=== PATIENT | male | born 1960 | race Caucasian/White ===

== ENCOUNTER 2016-11-17 16:09 | Observation (INO) | payer SELFPAY ==
[~2016-11-17] VITALS: Ht 162.6 cm; Wt 65.0 kg
[2016-11-17 16:50] LABS: HEMATOCRIT 45.4 % (39.2-51.8); HEMOGLOBIN 15.5 g/dL (13.7-18.0); WHITE BLOOD COUNT 6.6 x10^3/uL (3.4-10)
[2016-11-17 17:00] LABS: BLOOD UREA NITROGEN 15 mg/dL (7-18)
[2016-11-17 17:03] LABS: ASPARTATE AMINO TRANSFERASE 58 U/L (15-37)
[2016-11-17 17:09] LABS: ACETAMINOPHEN < 2 mcg/mL (10-30)
[2016-11-17] MEDS ORDERED: DOCUSATE 100 MG CAPSULE PO PRN (22:00)
[2016-11-17] MEDS ORDERED: ONDANSETRON ODT 4 MG PO PRN (22:00)
[2016-11-17] MEDS ORDERED: POLYETHYLENE GLYCOL 17 GM PACKET PO PRN (22:00)
[2016-11-17] MEDS ORDERED: BISACODYL 10 MG SUPP PR PRN (22:00)
[2016-11-17 22:09] LABS: DAU SCREEN DISCLAIMER
[2016-11-18 06:31] LABS: BLOOD UREA NITROGEN 15 mg/dL (7-18)
[2016-11-18 06:34] LABS: ASPARTATE AMINO TRANSFERASE 60 U/L (15-37)
[2016-11-18 07:45] VITALS: BP 129/80
[2016-11-18] MEDS: SERTRALINE 50MG TABLET PO SCH (08:43)
[2016-11-18] MEDS: ENOXAPARIN 40 MG/0.4 ML SQ SCH (08:45)
[2016-11-18] MEDS: NICOTINE 14MG/24 HR PATCH.TD24 TD SCH (08:45)
[2016-11-18 19:47] VITALS: BP 189/101
[2016-11-18 20:21] VITALS: BP 156/97
[2016-11-18] MEDS: TRAZODONE 100MG TABLET PO SCH (21:03)
[2016-11-19 05:08] LABS: BLOOD UREA NITROGEN 13 mg/dL (7-18)
[2016-11-19 05:11] LABS: ASPARTATE AMINO TRANSFERASE 65 U/L (15-37)
[2016-11-19 07:17] VITALS: BP 135/90
[2016-11-19] MEDS: NICOTINE 14MG/24 HR PATCH.TD24 TD SCH (08:43)
[2016-11-19] MEDS: SERTRALINE 50MG TABLET PO SCH (08:43)
[2016-11-19] MEDS: ENOXAPARIN 40 MG/0.4 ML SQ SCH (08:44)
[2016-11-19 19:53] VITALS: BP 155/89
[2016-11-19] MEDS: TRAZODONE 100MG TABLET PO SCH (20:56)
[2016-11-19 20:59] VITALS: BP 159/90
[2016-11-19 22:04] VITALS: BP 158/83
[2016-11-20 07:45] VITALS: BP 147/92
[2016-11-20] MEDS: ENOXAPARIN 40 MG/0.4 ML SQ SCH (08:04)
[2016-11-20] MEDS: SERTRALINE 50MG TABLET PO SCH (08:05)
[2016-11-20] MEDS: NICOTINE 14MG/24 HR PATCH.TD24 TD SCH (08:06)
[2016-11-20] MEDS ORDERED: TRAZ100T15 PO (10:06)
[2016-11-20] MEDS ORDERED: SERT50TA PO (10:06)
== END 2016-11-20 10:43 | disposition home or self-care (01) ==
LOC: ED 18:16 → EDIP 20:10 → INTOOBSV 20:10 → 3E 22:54
PROVIDERS: ADMIT Internal Medicine; ATTEND Internal Medicine
DX: R45.851 Suicidal ideations (principal); F32.9 Major depressive disorder, single episode, unspecified; B19.20 Unspecified viral hepatitis C without hepatic coma; R94.5 Abnormal results of liver function studies
CPT/HCPCS: 36415; 80053; 80074; 80307; 80329; 85025; 87521; 96372; 99285; G0378; J1650; G0480

== ENCOUNTER 2016-12-12 13:10 | Emergency (ER) | payer SELFPAY ==
[~2016-12-12] VITALS: Ht 162.6 cm; Wt 69.5 kg
[~2016-12-12 13:10] MED LIST: SERT50TA PO; TRAZ100T15 PO
[2016-12-12 13:14] VITALS: BP 142/84
== END 2016-12-12 14:10 | disposition home or self-care (01) ==
LOC: ED 13:45
DX: Z76.0 Encounter for issue of repeat prescription (principal); F17.200 Nicotine dependence, unspecified, uncomplicated
CPT/HCPCS: 99283